=== PATIENT | female | born 1965 | race Caucasian/White ===

== ENCOUNTER → 2016-09-01 | Outpatient (CLI) | payer OTHER ==
--- NOTE | 2016-09-01 17:25 | DX ---
Right hip, 2 views History: Fall 4 years ago, right hip pain. Comparison: None. 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 The remaining right femur intratrochanteric region is displaced superolaterally at least 2 cm from normal position since there is no femoral neck to attach to the femoral head. The left hip demonstrates no definite acute fracture. Pelvic bones demonstrate no additional fracture s or destructive osseous lesions. Impression: 1. Old fracture of the right femoral neck, which has completely resolved without attachment of the re maining sclerotic avascular small femoral head to the rest of the right femur, which is displaced sup erolaterally. 2. Recommend orthopedic consult. A follow-up required test result notification was sent via the [email or web address] service, 5:20:07 PM, 09/01/2016, [email or web address] Message ID [id number].
== END ==
LOC: BRMIMAGING 14:01
PROVIDERS: ATTEND Family Medicine
DX: M25.551 Pain in right hip (principal)
CPT/HCPCS: 73502-PO